=== PATIENT | female | born 2000 | race Caucasian/White ===

== ENCOUNTER 2023-09-06 22:08 | Emergency (ER) | payer OTHER, SELFPAY ==
--- NOTE | ~2023-09-06 | XR_ITS ---
EXAMINATION: XR SHOULDER, LEFT at 10:12 PM XR SHOULDER, LEFT at 10:20 PM CLINICAL INFORMATION: Shoulder dislocation COMPARISON: None available. TECHNIQUE: 2 views of the left shoulder. FINDINGS: Initial views of the left shoulder demonstrate anterior glenohumeral dislocation. No acute fractures. Soft tissue structures are within normal limits. Post reduction films demonstrates a located glenohumeral joint without fractures. XR/XR shoulder LT min 2V IMPRESSION: Anterior shoulder dislocation, subsequently reduced and now located. No acute fractures.
--- NOTE | ~2023-09-06 | XR_ITS ---
EXAMINATION: XR SHOULDER, LEFT at 10:12 PM XR SHOULDER, LEFT at 10:20 PM CLINICAL INFORMATION: Shoulder dislocation COMPARISON: None available. TECHNIQUE: 2 views of the left shoulder. FINDINGS: Initial views of the left shoulder demonstrate anterior glenohumeral dislocation. No acute fractures. Soft tissue structures are within normal limits. Post reduction films demonstrates a located glenohumeral joint without fractures. XR/XR shoulder LT min 2V IMPRESSION: Anterior shoulder dislocation, subsequently reduced and now located. No acute fractures.
[2023-09-06 22:12] VITALS: BP 89/46; PULSE 92; RESP 16; TEMP 36.4; O2SAT 96; BMI 25.1
--- NOTE | 2023-09-06 22:30 | PC.NURSE ---
dr. bowens and this RN to bedside; Dr. Bowens able to reduce L. shoulder post dislocation. Xray at bedside now to confirm. +ROM +CSM.
--- NOTE | 2023-09-06 22:37 | ED_ITS ---
HPI - Extremity Problem General Chief complaint: Extremity Injury, Upper Stated complaint: ? left shoulder dislocation Time Seen by Provider: 09/06/23 22:18 Source: patient Mode of arrival: ambulatory Limitations: no limitations History of Present Illness HPI Narrative: 23-year-old female came in for evaluation of a possible left shoulder dislocation while playing hockey. Patient had a history of right shoulder dislocation multiple times in the past. Patient is a right-handed, patient declined head injury or neck pain. Related Data Allergies Allergy/AdvReac Type Severity Reaction Status Date / Time No Known Allergies Allergy Verified 09/06/23 22:11 Review of Systems Review of Systems: all other systems are reviewed and are negative Constitutional: Reports as per HPI and Reports no additional constitutional complaints Eyes: Reports as per HPI and Reports no additional eye complaints Reports system reviewed and no additional complaints, except as documented Cardiovascular: Reports as per HPI and Reports no additional cardiovascular complaints Respiratory: Reports as per HPI and Reports no additional respiratory complaints Gastrointestinal: Reports as per HPI and Reports no additional gastrointestinal complaints Genitourinary: Reports no additional female genitourinary complaints Musculoskeletal: Reports no additional musculoskeletal complaints Skin/Breast: Reports system reviewed and no additional complaints, except as docu Psychiatric: Reports no additional psychiatric complaints Endocrine: Reports no additional endocrine complaints Hematologic/Lymphatic: Reports no additional hematologic/lymphatic complaints Allergic/Immunologic: Reports no additional allergic/immunologic complaints Reports system reviewed and no additional complaints, except as documented and Reports Abnormal speech present Physical Exam Vital Signs: Vital Signs: Last Vital Signs Temp 97.6 F 09/06/23 22:12 Pulse 85 09/06/23 22:52 Resp 16 09/06/23 22:52 BP 131/88 09/06/23 22:52 Pulse Ox 98 09/06/23 22:52 O2 Del Method Room Air 09/06/23 22:52 BMI result Body Mass Index 25.1 Vital signs have been reviewed and appear to be correct. Blood pressure normal. Heart rate normal. Respiratory rate normal. Temperature normal. Oxygen saturation normal. Appearance: Alert. Oriented X3. No acute distress. Head: Normal external exam. Normocephalic. Atraumatic. No Levy signs noted. No raccoon eyes noted Eyes: PERRLA. EOMI. Conjunctiva and sclera normal. Eyelids normal. ENT: TM's Normal. Pharynx normal. Uvula midline. Moist mucous membranes. No trismus noted. No drooling noted. No muffled voice noted. Neck: Normal inspection. Neck supple. FROM. No adenopathy. Thyroid Normal. No meningeal signs. No neck mass noted. CVS: Normal heart rate and rhythm. Heart sound normal. No murmurs noted. Pulses normal throughout. Respiratory: No respiratory distress. Painless inspiration. Breath sounds normal. No wheezes/rales/rhonchi noted. Chest nontender. No accessory muscle usage noted or decreased air movement noted. Abdomen: Soft and nontender. Bowel sounds normal in all 4 quadrants. No distention noted. No organomegaly noted. No visible injury noted. Back: No CVA tenderness. Full range of motion noted. Skin: Skin warm and dry. Normal skin color. Normal skin turgor. No rashes/lesions/lacerations noted. Extremities: Left shoulder: Left arm is held in abduction position with painful adduction, neurovascularly intact. Neuro: Oriented X 3. Cranial nerve exam: II-XII are grossly intact No motor deficit. No sensory deficit. Reflexes normal. Course Reevaluation(s) Reevaluation #1: repeat neurovascular exam After reduction,with intact sensation in the left deltoid area, intact left radial artery, cap refill is less than 2 seconds. Time: 23:12 Medications Administered Discontinued Medications Generic Name Dose Route Start Last Admin Trade Name Freq PRN Reason Stop Dose Admin Ibuprofen 600 mg 09/06/23 22:34 09/06/23 22:47 Ibuprofen 600 Mg Tablet PO 09/06/23 22:35 600 mg ONCE ONE Administration Medical Decision Making Differential Diagnosis Differential Diagnoses: The differential diagnosis associated with the presentation includes ( Left shoulder fracture, left shoulder dislocation, neurovascular compromise.) Admission/Observation Consideration of admission/observation: Escalation of care including admission/observation considered Independent Interpretation I performed an independent interpretation of an: Plain X-Ray ( Left shoulder /postreduction left shoulder x-ray: Dislocation /postreduction satisfactory position.) Radiology Impression Discussion of test interpretation with radiology: I have reviewed the radiolo gist's reading. Discharge Plan Discharge Clinical Impression: Dislocation of shoulder, left, closed Patient Disposition: Home, Self-Care Instructions: Shoulder Dislocation (ED) Referrals: Henry Noguera MD [Physician] - Stand Alone Forms: Work/School Release
[2023-09-06] MEDS: Ibuprofen 600 MG TABLET PO (22:47)
[2023-09-06 22:52] VITALS: BP 131/88; PULSE 85; RESP 16; O2SAT 98
[2023-09-06 23:18] VITALS: BP 123/84; PULSE 83; RESP 16; TEMP 36.6; O2SAT 96
== END 2023-09-06 23:27 | disposition home or self-care (01) ==
PROVIDERS: Emergency Provider Emergency Medicine
DX: S43.085A Other dislocation of left shoulder joint, initial encounter (principal); X50.1XXA Overexertion from prolonged static or awkward postures, initial encounter; Y93.22 Activity, ice hockey; Y92.330 Ice skating rink (indoor) (outdoor) as the place of occurrence of the external cause; Y99.9 Unspecified external cause status
CPT/HCPCS: 23650; 73030; 99283; 99284